=== PATIENT | female | born 1960 | race Caucasian/White ===

== ENCOUNTER 2025-02-19 09:31 | Outpatient (OUT) | payer OTHER, SELFPAY ==
--- OUTSIDE RECORDS SUMMARY | 2025-02-19 09:37 | XMS_ITS | Encounter Summary ---
Author Organization [facility] Address [address] [place] [address] Care Team Providers Care Quantitative Manager Name Role Phone Jaye Kramer MD Primary Care Provider [phone] Reason for Visit * Reason Onset Date Comments Med Refill 09/24/2024 Encounter Details Date Type Department Care Team (Late st Contact Info) Description 09/24/2024 Refill [facility] Family Medicine [address] [place] [id number] Ashely Ramsey NP Mixed hyperlipidemia Social History Tobacco Use Types Packs/Day Years Used Date Smoking Tobacco: Never Smokeless Tobacco: Never Alcohol Use Standard Drinks/Week Comments Yes 2 (1 standard drink = 0.6 oz pure alcohol) Varies greatly. Never more than 1 glass an evening. Humiliation, Afraid, Rape, and Kick questionnair e Answer Date Recorded Within the last year, have y ou been afraid of your partner or ex-partner? No 07/06/2023 Within the last year, have y ou been humiliated or emotionally abused in other ways by your partner or ex-partner? No Within the last year, have y ou been kicked, hit, slapped, or otherwise physically hurt by your partner or ex-partner? No 07/06/2023 Within the last year, have y ou been raped or forced to have any kind of sexual activity by your partner or ex-partner? No 07/06/2023 Social Connection and Isolat ion Panel [NHANES] Answer Date Recorded In a typical week, how many times do you talk on the phone with family, friends, or neighbors? Twice a week 07/06/2023 How often do you get togethe r with friends or relatives? Patient declined 07/06/2023 How often do you attend chur ch or jew services? More than 4 times per year 07/06/2023 Do you belong to any clubs o r organizations such as latter day groups, unions, fraternal or athletic groups, or school groups? Yes 07/06/2023 How often do you attend meet ings of the clubs or organizations you belong to? More than 4 times per year 07/06/2023 Are you , , di vorced, , never , or living with a partner? 07/06/2023 AUDIT-C Answer Date Recorded Q1: How often do you have a drink containing alc ohol? Monthly or less 12/05/2023 Q2: How many drinks containi ng alcohol do you have on a typical day when you are drinking? 1 or 2 12/05/2023 Q3: How often do you have si x or more drinks on one occasion? Never 12/05/2023 Overall Financial Resource Strain (CARDIA) Answe r Date Recorded How hard is it for you to pa y for the very basics like food, housing, medical care, and heating? Not hard at all 07/06/2023 PHQ-2 Answer Date Recorded Patient Health Questionnaire-2 Score 0 12/05/2023 [facility] - Occupational Stress Questionnaire Answer Date Recorded Do you feel stress - tense, restless, nervous, or anxious, or unable to sleep at night because your mind is troubled all the time - these days? Not at all 07/06/2023 Exercise Vital Sign Answer Date Recorde d On average, how many days pe r week do you engage in moderate to strenuous exercise (like a brisk walk)? 3 days 07/06/2023 On average, how many minutes do you engage in exercise at this level? 150+ min 07/06/2023 Hunger Vital Sign Answer Date Recorded Within the past 12 months, y ou worried that your food would run out before you got the money to buy more. Never true 07/06/19 24 Within the past 12 months, t he food you bought just didn't last and you didn't have money to get more. Never true 07/06/2023 PRAPARE - Transportation Answer Date Re corded In the past 12 months, has l ack of transportation kept you from medical appointments or from getting medications? No 01/2024 In the past 12 months, has l ack of transportation kept you from meetings, work, or from getting things needed for daily living? No 07/06/2023 Housing Stability Vital Sign Answer Siva e Recorded In the last 12 months, was t here a time when you were not able to pay the mortgage or rent on time? No 07/06/2023 In the last 12 months, how many places have you lived? 1 07/06/2023 In the last 12 months, was t here a time when you did not have a steady place to sleep or slept in a care home (including now)? No 07/06/2023 Comments Unknown Sex and Gender Information Value Date Recorded Sex Assigned at Female 07/06/2023 8:58 AM EST Legal Sex Female 6:41 PM EDT Gender Identity Female 07/06/2023 8:58 AM EST Sexual Orientation Not on file documented as of this encounter Plan of Treatment Not on file documented as of this encounter Visit Diagnoses Diagnosis Mixed hyperlipidemia Mixed hyperlipidemia documented in this encounter Care Teams Quantitative Manager Relationship Specialty Start Date End Date Ferozly, Jaye Arias MD PCP - General Family Medicine 10/03/22 documented as of this encounter
--- OUTSIDE RECORDS SUMMARY | 2025-02-19 09:38 | XMS_ITS | Clinical Summary ---
Author Organization [employer] Address [id number] [address] [place] [address] Care Team Providers Care Centerless Grinder Name Role Phone Jaye Kramer MD Primary Care Provider [phone] Allergies No known active allergies Medications ibuprofen (ADVIL,MOTRIN) 200 mg tablet Take 200 mg by mouth every 6 (six) hours as needed for pain. Active docusate sodium (COLACE) 100 mg capsule Take 100 mg by mouth 2 (two) times a day as needed for constipatio n. Active Active Problems No known active problems Social History Tobacco Use Types Packs/Day Years Used Date Smoking Tobacco: Never Assessed Childcare Answer Date Recorded Childcare Unknown 01/23/2019 Employment Answer Date Recorded Employment Unknown 01/23/2019 Purpose - Life Answer Date Recorded Purpose and direction in life Unknown Comments No Sex and Gender Information Value Date Recorded Sex Assigned at Not on file Legal Sex Female 10:19 AM EDT Gender Identity Not on file Sexual Orientation Not on file Last Filed Vital Signs Vital Sign Reading Time Taken Comments Blood Pressure 121/84 02/20/2019 9:50 AM EDT Pulse 85 02/20/2019 9:35 AM EDT Temperature 36.3 C (97.3 F) 02/20/2019 8:45 AM EDT Respiratory Rate 15 02/20/2019 9:10 AM EDT Oxygen Saturation 93% 02/20/2019 9:50 AM EDT Inhaled Oxygen Concentration - - Weight 85.7 kg (189 lb) 02/20/2019 8:45 AM EDT Height 157.5 cm (5' 2 ) 02/20/2019 8:45 AM EDT Body Mass Index 34.57 02/20/2019 8:45 AM EDT Plan of Treatment Health Maintenance Due Date Last Done Comments Depression Screening 1974 Tobacco Screening 1974 Adult BMI Screening 1980 DTaP,Tdap and Td Vaccines (1 - Tdap) 1981 Pap Smear 12/05/1983 Zoster (Shingles) Vaccine (1 of 2) 2012 Influenza Vaccine 01/26/2025 Medical Devices Not on file Insurance Rd [address] [place] [id number] [facility] Care Teams Centerless Grinder Relationship Specialty Start Date End Date Jaye Kramer MD [address] [place] [address] PCP - General Family Medicine 02/20/19
--- OUTSIDE RECORDS SUMMARY | 2025-02-19 09:38 | XMS_ITS | Clinical Summary ---
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 Mixed hyperlipidemia 12/12/2022 Seasonal allergies 12/12/2022 Resolved Problems Problem Noted Date Diagnosed Date Resolved Date Obesity (BMI 30.0-34.9) 12/12/202211/25 Immunizations Immunization Administration Dates Next Due Hep A, Adult 04/01/2019,09/03/2018 Influenza, injectable, quadrivalent 01/01/2020 Influenza, injectable, quadr ivalent, preservative free 01/22/2023,02/20/2021,12/31/2019,2018,01/15/2018,01/11/2017 Influenza, seasonal, injecta ble, preservative free 03/16/2016,02/26/2015 MMR 10/14/2018 Tdap 01/02/2019 Zoster, Recombinant 01/24/2019,11/25/2018 Zoster, live 11/13/2014 Family History Medical History Relation Name Comments Stroke Mother Shira Rivera Breast cancer Sister Relation Name Status Comments Brother x3 Father Alive Mother Shira Rivera Sister x3 Social History Tobacco Use Types Packs/Day Years Used Date Smoking Tobacco: Never Smokeless Tobacco: Never Tobacco Cessation:Counseling Given: Not Answered Alcohol Use Standard Drinks/Week Comments Yes 2 [...] 07/06/2023 How often do you attend chur or anglican services? More than 4 times per year 07/06/2023 Do you belong to any clubs o r organizations such as religious groups, unions, fraternal or athletic groups, or [...] Recorded Patient Health Questionnaire-2 Score 0 12/05/2023 [facility] - Occupational Stress Questionnaire Answer Date Recorded [...] place to sleep or slept in a jail (including now)? No 07/06/2023 Comments Unknown Sex and Gender Information Value Date Recorded Sex Assigned at Female 07/06/2023 8:58 AM EST Legal Sex Female 6:41 PM EDT Gender Identity Female 07/06/2023 8:58 AM EST Sexual Orientation Not on file Last Filed Vital Signs Vital Sign Reading Time Taken Comments Blood Pressure 116/76 12/05/2023 9:37 AM EDT Pulse 68 12/05/2023 9:37 AM EDT Temperature 37 C (98.6 F) 07/06/2023 10:15 AM EST Respiratory Rate - - Oxygen Saturation - - Inhaled Oxygen Concentration - - Weight 88.5 kg (195 lb) 12/05/2023 9:37 AM EDT Height 157.5 cm (5' 2 ) 12/05/2023 9:37 AM EDT Body Mass Index 35.67 12/05/2023 9:37 AM EDT Plan of Treatment Health Maintenance Due Date Last Done Comments CT Colonography 1962 FIT-DNA 1962 FIT 1962 FOBT 1962 Sigmoidoscopy 1962 Pap Smear 12/05/1983 Mammogram 08/02/2023 08/01/2022, 11/2021, 05/03/2020, Additional history exists Influenza Vaccine (#1) 2025 , 02/20/2021, 01/01/2020, Additional history exists Cervical Cancer Screening 07/25/2026 HPV/Cotest 07/25/2026 07/25/2021, 12/16/2018 Colonoscopy 02/20/2029 02/20/2019, 02/20/2019, 01/27 Colorectal Cancer Screening 02/20/2029 Procedures Procedure Name Priority Date/Time Associated Diagnosis Comments BI MAMMOGRAM SCREENING TOMOSYNTHESIS BILATERAL Routine 08/01/2022 Encounter for screening mammogram for malignant neoplasm of breast Malignant melanoma of right upper limb, including shoulder (HCC) Mixed hyperlipidemia Other seasonal allergic rhinitis Lipoprotein deficiency Obesity, unspecified Personal history of malignant melanoma of skin Other specified disorders of nose and nasal sinuses Encounter for general adult medical examination without abnormal findings Contracture, right ankle Contracture, left ankle Acute maxillary sinusitis, unspecified Q - THINPREP(R) TIS AND HPV MRNA E6/E7 Routine 07/25/2021 COLONOSCOPY Routine 02/20/2019 12:00 PM EDT from Last 3 Months or Most Recently Relevant to Health Maintenance Results * Bilateral screening mammogram with tomosynthesis (08/01/2022) Anatomical Region Laterality Modality Breast Bilateral Mammography Impressions 08/01/2022 12:00 AM EST BI-RADS 2- Benign Mammogram Board Certified Radiologist. Accredited by the ACR and FDA. MAMMOGRAPHY IS VERY IMPORTANT TO YOUR HEALTH. THE CURRENT [employer] [employer] OF [employer] AND NATIONAL COMPREHENSIVE CANC[employer] NETWORK GUIDELINES RECOMMENDS ANNUAL MAMMOGRAPHY BEGINNING AT AGE 40 THIS FACILITY USES A REMINDER SYSTEM TO ENSURE ALL PATIENTS RECEIVE REMINDER NOTIFICATIONS AT THE APPROPRIATE TIME BASED ON THE RECOMMENDATIONS OF THIS EXAM. Report reported and signed by Davi Terrell on 08/02/2022 0700 Narrative 08/01/2022 12:00 AM EST PERFORMED AT [facility] LOCATION:[place] [address] COMPARISON: Dating back to August 01, 2021, May 03, 2020. TECHNIQUE: 2D and 3D Tomosynthesis of the right and left breasts was performed. FINDINGS: Breast composition demonstrates scattered fibroglandular densities. Typically benign calcifications. Overall appearance stable. No suspicious microcalcifications, dominant mass lesions, or distortion is present. Procedure Note CONVERSION, GENERIC - 12/01/2022 PERFORMED AT [facility] LOCATION:[place] [address] COMPARISON: Dating back to August 01, 2021, May 03, 2020. TECHNIQUE: 2D and 3D Tomosynthesis of the right and left breasts wasperformed. FINDINGS: Breast composition demonstrates scattered fibroglandular densities.Typically benign calcifications. Overall appearance stable. No suspiciousmicrocalcifications, dominant mass lesions, or distortion is present. IMPRESSION: BI-RADS 2- Benign Mammogram Board Certified Radiologist. Accredited by the ACR and FDA. MAMMOGRAPHY IS VERY IMPORTANT TO YOUR HEALTH. THE CURRENT [employer] COLLEGEOF RADIOLOGY AND NATIONAL COMPREHENSIVE CANCER NETWORK GUIDELINES RECOMMENDS ANNUALMAMMOGRAPHY BEGINNING AT AGE 40 THIS FACILITY USES A REMINDER SYSTEM TO ENSURE ALL PATIENTS RECEIVEREMINDER NOTIFICATIONS AT THE APPROPRIATE TIME BASED ON THE RECOMMENDATIONS OF THIS EXAM. Report reported and signed by Davi Terrell on 08/02/2022 0700 Latisha Wallace NP IMG BI PROCEDURES Final Re sult * Q - THINPREP(R) TIS AND HPV MRNA E6/E7 (07/25/2021) CLINICAL INFORMATION: None given [facility] Comment:[HFK] LMP: None given [facility] Comment:[HFK] PREV. PAP: None given [facility] Comment:[HFK] PREV. BX: None given [facility] Comment:[HFK] SOURCE: None given [facility] Comment:[HFK] STATEMENT OF ADEQUACY: SATISFACTORY FOR EVALUATION [facility] Comment:[HFK] INTERPRETATION/RES ULT: SEE NOTE [facility] Comment: Negative for intraepithelial lesion or malignancy. Reactive cellular changes associated with repair [HFK] COMMENT: This Pap test has been evaluated with computer assisted technology. [facility] Comment:[HFK] AIRCRAFT DESIGNER: SEE NOTE NO [facility] Comment: MRS, CT(ASCP) CT screening location: [facility], [address] [place] [address]. [HFK] PATHOLOGIST: SEE NOTE [facility] Comment: Vicente Feliciano MD Board Certified in Anatomic Pathology and Cytopathology (electronic signature) For questions regarding this report call Anatomic Pathology at [phone] Vicente Feliciano MD, [employer] [facility] [place], [place] [HFK] COMMENT SEE NOTE [facility] Comment: EXPLANATORY NOTE: The Pap is a screening test for cervical cancer. It is not a diagnostic test and is subject to false negative and false positive results. It is most reliable when a satisfactory sample, regularly obtained, is submitted with relevant clinical findings and history, and when the Pap result is evaluated along with historic and current clinical information. [HFK] HPV MRNA E6/E7 Not Detected Not Detected [facility] Comment: Methodology: Sales Service Coordinator-Mediated Amplification This assay detects E6/E7 viral messenger RNA (mRNA) from 14 high-risk HPV types (16,18,31,33,35,39,45,51,52,56,58,59,66,68). The analytical performance characteristics of this assay have been determined by [facility]. The modifications have not been cleared or approved by the FDA. This assay has been validated pursuant to the CLIA regulations and is used for clinical purposes. For additional information, please refer to http://education.[employer]/faq/GAK811n1 (This link if provided for information/ educational purposes only.) [O6K] 07/25/2021 us Latisha Wallace CLINICAL SPECIALTY REP [facility] Final Resu lt [facility] * Colonoscopy (02/20/2019 12:00 PM EDT) Anatomical Region Laterality Modality Endoscopy 02/20/2019 12:0 0 PM EDT Narrative 02/20/2019 12:00 PM EDT PERFORMED AT [facility] LOCATION:[id number] Procedure Note CONVERSION, GENERIC - 10/11/2022 PERFORMED AT [facility] LOCATION:[id number] us Bogdan Gilliam MD ENDOSCOPY PROCEDURE ORDERABL ES Final Result from Last 3 Months or Most Recently Relevant to Health Maintenance Insurance [facility] Care Teams Chain Maker Hand Relationship Specialty Start Date End Date Jaye Kramer MD PCP - General Family Medicine 10/03/22
--- OUTSIDE RECORDS SUMMARY | 2025-02-19 09:38 | XMS_ITS | Encounter Summary ---
Author Organization [facility] Address [address] [place] [address] Care Team Providers Care Engine Repair Supervisor Name Role Phone WallaceLatisha gatica Randolph TROMMEL TENDER Unavailable [phone] Jaye Kramer MD Primary Care Provider [phone] Encounter Details Date Type Department Care Team (Late st Contact Info) Description 11/27/2023 Orders Only [facility] Family Medicine [address] [place] [id number] Unallocated, [facility] Provider, [address] [place] [address] Social History Tobacco Use Types Packs/Day Years [...] How often do you attend chur or zoroastrian services? More than 4 times per year 07/06/2023 Do you belong to any clubs o r organizations such as oriental orthodox groups, unions, fraternal or athletic groups, or school groups? Yes 07/06/2023 How often do you attend meet ings of the clubs or organizations you belong to? More than 4 times per year 07/06/2023 Are you , , di vorced, , never , or living with a partner? 07/06/2023 AUDIT-C Answer Date Recorded Q1: How often do you have a drink containing alc ohol? 2-4 times a month 07/06/2023 Q2: How many drinks containi ng alcohol do you have on a typical day when you are drinking? 1 or 2 07/06/2023 Q3: How often do you have si x or more drinks on one occasion? Never 07/06/2023 Overall Financial Resource Strain (CARDIA) Answe r Date Recorded How hard is it for you to pa y for the very basics like food, housing, medical care, and heating? Not hard at all 07/06/2023 [facility] - [...] place to sleep or slept in a senior living (including now)? No 07/06/2023 Comments Unknown Sex and Gender Information Value Date Recorded Sex Assigned at Female 07/06/2023 8:58 AM EST Legal Sex Female 6:41 PM EDT Gender Identity Female 07/06/2023 8:58 AM EST Sexual Orientation Not on file documented as of this encounter Plan of Treatment Not on file documented as of this encounter Procedures Procedure Name Priority Date/Time Associated Diagnosis Comments CBC WITH AUTO DIFFERENTIAL Routine 12/11/2022 11:10 AM EDT LIPID PANEL Routine 12/11/2022 11:10 AM EDT BASIC METABOLIC PANEL Routine 12/11/2022 11:10 AM EDT documented in this encounter Results * Basic metabolic panel (12/11/2022 11:10 AM EDT) Blood Venous blood specimen / Unknown us [facility] Provider Unallocated MD LAB BLOOD ORDERABLE S Final Result * Lipid panel (12/11/2022 11:10 AM EDT) Blood Venous blood specimen / Unknown us [facility] Provider Unallocated MD LAB BLOOD ORDERABLE S Final Result * CBC auto differential (12/11/2022 11:10 AM EDT) Blood Venous blood specimen / Unknown us [facility] Provider Unallocated LAB BLOOD ORDERABLE S Final Result documented in this encounter Visit Diagnoses Not on filedocumented in this encounter Care Teams Engine Repair Supervisor Relationship Specialty Start Date End Date Latisha Wallace NP [address] [place] [address] PCP - Godfrey Redmond 09/25/22 Jaye Kramer MD [address] [place] [address] PCP - General Family Medicine 10/03/22 documented as of this encounter
[2025-02-19 10:17] LABS: Alanine Aminotransferase 42 U/L (14-59); Albumin Globulin Ratio 1.1; Albumin Level 3.7 g/dL (3.4-5.0); Alkaline Phosphatase 61 U/L (46-116); Anion Gap 8.5; Aspartate Amino Transferase 24 U/L (15-37); Blood Urea Nitrogen 13.0 mg/dL (7.0-18.0); Calcium 8.8 mg/dL (8.5-10.1); Carbon Dioxide 29.6 mmol/L (21.0-32.0); Chloride 104 mmol/L (98-107); Cholesterol 160 mg/dL (<=200); Estimated GFR (African America >60 (>=60 mL/min/1.73m^2); Estimated GFR (Non-African Ame >60 (>=60 mL/min/1.73m^2); Globulin 3.3 g/dL; Glucose 97 mg/dL (74-106); HDL Cholesterol 38 mg/dL (40-60); Potassium 4.1 mmol/L (3.5-5.1); Sodium 138 mmol/L (136-145); Total Protein 7.0 g/dL (6.4-8.2); Triglycerides 142 mg/dL (<=150); VLDL CHOLESTEROL 28.4 mg/dL
== END 2025-02-19 09:32 | disposition home or self-care (01) ==
LOC: LAB 09:34
PROVIDERS: PCP Family Medicine
DX: E78.2 Mixed hyperlipidemia (principal); Z13.89 Encounter for screening for other disorder
CPT/HCPCS: 36415; 80053; 80061